=== PATIENT | male | born 1970 | race Caucasian/White ===

== ENCOUNTER 2020-07-15 09:44 | Emergency (ER) | payer OTHER, SELFPAY ==
--- NOTE | ~2020-07-15 | XR_ITS ---
EXAMINATION: XR finger 3rd RT min 2V DATE: 07/15/2020 11:14 INDICATION: Right hand third digit dislocation. TECHNIQUE: 4 views of right hand third digit were obtained. COMPARISON: Right hand radiographs 07/15/2020 FINDINGS: Bone alignment is normal. No fracture. There is mild osteoarthritis of third proximal and d istal interphalangeal joints. There is heterotopic ossification palmar and dorsal to neck of third mi ddle phalanx. IMPRESSION: 1. Mild polyarticular osteoarthritis. Reviewed, dictated and finalized at location A.
--- NOTE | ~2020-07-15 | XR_ITS ---
EXAMINATION: XR hand RT min 3V INDICATION: Left hand pain TECHNIQUE: Three views of the left hand are obtained. COMPARISON: None available FINDINGS: There is no acute fracture, dislocation, or subluxation. Mild osteoarthritis is noted at th e first carpometacarpal joint. Tiny heterotopic ossification at the palmar aspect of the second middl e phalanx may reflect prior injury. There is soft tissue swelling of the third finger. IMPRESSION: 1. No acute osseous abnormality. Reviewed, dictated and finalized at location B.
--- NOTE | ~2020-07-15 | XR_ITS ---
EXAMINATION: XR wrist RT min 3V INDICATION: Right wrist pain TECHNIQUE: Four views of the right wrist are obtained. COMPARISON: None available FINDINGS: There is volar tilt of the lunate on the lateral view. No fracture is identified. Mild oste oarthritis is noted at the first carpometacarpal joint. There are calcified loose bodies in the wrist . Wrist soft tissue swelling is noted. IMPRESSION: 1. 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 Reviewed, dictated and finalized at location B. IMPRESSION: 1. Volar tilt of the lunate consistent with volar intercalated segmental instab ility (VISI).
[2020-07-15 09:54] VITALS: BP 126/86; PULSE 99; RESP 18; TEMP 36.5; O2SAT 99
--- NOTE | 2020-07-15 11:27 | ED.GENADULT ---
HPI - General Adult General Chief complaint: Extremity Injury, Upper Stated complaint: finger injury Time Seen by Provider: 07/15/20 10:14 Source: patient, family and RN notes reviewed Mode of arrival: ambulatory Limitations: no limitations History of Present Illness HPI narrative: Patient is a 49-year-old male who presents to emergency department for evaluation of dislocation of the right third digit at the PIP joint that occurred after slipping and injuring the finger patient was inability to perform range of motion after the injury took ibuprofen just prior to arrival denies other injuries or complaints Related Data Allergies Allergy/AdvReac Type Severity Reaction Status Date / Time codeine Allergy Severe Vomiting Verified 04/17/14 13:10 hydrocodone Allergy Severe Vomiting Verified 04/17/14 13:10 erythromycin base Allergy Unknown Verified 04/17/14 13:10 Review of Systems Review of Systems: All systems reviewed & are unremarkable except as noted in HPI and below PMFSH Social History Social History (Updated 07/15/20 @ 11:28 by Juan Chowdary PA-C) Smoking status: Never smoker Exam Narrative: Exam Narrative: GENERAL: Well-appearing, well-nourished, and in no acute distress. HEAD: Normocephalic, atraumatic. EYES: PERRLA and EOMI. ENT: Nares clear, no rhinorrhea or epistaxis. Mucous membranes moist. CHEST: Clear to auscultation. No respiratory distress. No wheezes rales or rhonchi HEART: Regular rate and rhythm. No murmur heard. Normal peripheral pulses. EXTREMITIES: Dislocation deformity and tenderness at the PIP joint of the right middle finger. Remainder of hand and wrist nontender no deformity SKIN: Warm, dry, no rash. NEURO: No focal deficits. Alert and oriented x3. Neurovascularly intact. Capillary refill less than 2 seconds PSYCH: Normal mood and affect. Course Course Emergency Course: Patient in the room at this time no distress aware of case findings treatment plan and diagnosis. Patient will follow up with his hand surgeon. Patient given copies of his x-rays. Patient neurovascularly intact joint was reduced Vital Signs Vital signs: Vital Signs Temperature 97.7 F 07/15/20 09:54 Pulse Rate 99 07/15/20 09:54 Respiratory Rate 18 07/15/20 09:54 Blood Pressure 126/86 07/15/20 09:54 Pulse Oximetry 99 07/15/20 09:54 Temperature 97.7 F 07/15/20 09:54 Pulse Rate 99 07/15/20 09:54 Respiratory Rate 18 07/15/20 09:54 Blood Pressure 126/86 07/15/20 09:54 Pulse Oximetry 99 07/15/20 09:54 Procedures Orthopedic Joint Reduction Joint #1: Orthopedic Joint Reduction Date: 07/15/20 Orthopedic Joint Reduction Time: 11:31 Time Out Performed: No Side: right Joint Reduction Location: finger Analgesia: none Technique used: direct manipulation Post-reduction neuro exam: intact Post-reduction vascular: intact Post Reduction X-Ray Obtained: Yes Post Reduction X-Ray Results: reduced Splint Applied: Yes Patient Tolerated Procedure: well Orthopedic Splinting/Casting Injury #1: Splinting/Casting Date: 07/15/20 Splinting/Casting Time: 11:32 Side: right Upper Extremity Injury Location: finger (3rd right) Splint: prefabricated Pre-Formed: metal foam finger splint Pre-Procedure Neuro Vascular Exam: normal Post-Procedure Neuro Vascular Exam: normal Medical Decision Making MDM Narrative Medical decision making narrative: Patients injury or pain is consistent with musculoskeletal etiology. No signs of neurological or vascular compromise on exam. Compartments and tisues are soft without signs of compartment syndrome. Pain is felt appropriate for further evaluation on an outpatient basis. Vital Signs Vital Signs: Vital Signs Temperature 97.7 F 07/15/20 09:54 Pulse Rate 99 07/15/20 09:54 Respiratory Rate 18 07/15/20 09:54 Blood Pressure 126/86 07/15
== END 2020-07-15 11:56 | disposition home or self-care (01) ==
PROVIDERS: Emergency Provider Emergency Medicine; PCP Internal Medicine
DX: S63.252A Unspecified dislocation of right middle finger, initial encounter (principal); R93.6 Abnormal findings on diagnostic imaging of limbs; M19.041 Primary osteoarthritis, right hand; W01.0XXA Fall on same level from slipping, tripping and stumbling without subsequent striking against object, initial encounter
CPT/HCPCS: 26770; 73110; 73130; 73140; 99285